=== PATIENT | female | born 1995 | race Hispanic/Latino ===

== ENCOUNTER 2024-11-21 18:37 | Emergency (ER) | payer SELFPAY ==
[~2024-11-21] VITALS: Ht 170.2 cm; Wt 95.3 kg
[2024-11-21 19:02] LABS: APPEARANCE,URINE CLEAR (CLEAR); BILIRUBIN,URINE NEGATIVE (NEGATIVE); COLOR,URINE LIGHT-YELLOW (YELLOW); GLUCOSE, URINE (UA) NEGATIVE (NEGATIVE); KETONES,URINE NEGATIVE (NEGATIVE); LEUKOCYTE ESTERASE ,URINE NEGATIVE Leu/uL (NEGATIVE); NITRATE,URINE NEGATIVE (NEGATIVE); PH,URINE 5.5 (5.0-8.0); PROTEIN,URINE NEGATIVE (NEGATIVE); UROBILINOGEN,URINE 0.2 mg/dL (0.2-1.0)
[2024-11-21 19:03] LABS: ADD UA MICROSCOPIC YES
[2024-11-21 19:05] LABS: BACTERIA,URINE RARE /HPF (None Seen); MUCUS,URINE RARE LPF (None Seen); SQUAMOUS EPITHELIAL CELL,UR RARE /HPF (0-2)
[2024-11-21 19:06] LABS: HCG,QUALITATIVE URINE NEGATIVE (NEGATIVE)
[2024-11-21] MEDS: cefTRIAXone 1G VIAL IM ONE (19:11)
[2024-11-21] MEDS ORDERED: DOXY100T2 PO (19:29)
--- NOTE | 2024-11-21 19:29 | ERN ---
ED Note History of Present Illness Stated Complaint: PAIN WITH URINATION Chief Complaint: Painful Urination Time Seen by MD: 18:41 Time Seen by Midlevel: 18:41 Dictation: The patient is a 29-year-old female with a history of who presents to the emergency department with complaints of burning urination for three days after she had an unproductive sex. Patient denies any vaginal bleeding or discharge, denies any fevers, denies any nausea vomiting or diarrhea. No other symptoms reported. Allergies: Coded Allergies: Penicillins (Unverified Allergy, Unknown, 11/21/24) amoxicillin (Unverified Allergy, Unknown, 11/21/24) Home Meds Active Scripts Doxycycline Hyclate (Doxycycline Hyclate) 100 Mg Tablet, 1 TAB PO BID for 7 Days, #14 TAB 0 Refills Prov:JAMES BAILEY TRAIN [employer]NER 11/21/24 Past Medical History Past Medical History: No Pertinent History Surgical History: BTL, LMP: November 07, 2024 RN Note Reviewed/Agreed w/PFSH: Yes Review of System Dictation Constitutional: Negative for fever,chills, and weight loss Eyes: Negative for injury, pain,redness, and discharge ENT: Negative for injury,pain or swelling Cardiovascular: Negative for chest pain, palpitations, and edema Respiratory: Negative for shortness of breath, cough, and wheezing, Abdomen/GI: Negative for abdominal pain, nausea, vomiting, diarrhea, and constipation Back: Negative for injury and pain : Positive for dysuria MS/Extremity: Negative for injury and deformity Skin: Negative for rash, and discoloration Neuro: Negative for headache, weakness, numbness, tingling, and seizure Psych: Negative for suicide ideation, homicidal ideation, and hallucinations Initial Vital Sign VS Vital Signs Date Time Temp Pulse Resp B/P (MAP) Pulse Ox O2 Delivery O2 Flow Rate FiO2 11/21/24 18:41 98.2 77 18 128/75 97 Room Air 11/21/24 18:47 0 21 Physical Exam Dictation Vital Signs reviewed General Appearance: Alert, oriented x 3, no acute distress, well developed, nourished. Head and Face: non-traumatic. Eyes: PERRL, pink conjunctivas, eyelid no trauma, anterior chamber with arcus senilis. Ears: Pinnas intact and no signs of trauma or erythema ear canals clear and no d ischarge TM no erythema Nose: No discharge, no bleeding. Oropharynx: Mouth normal, tongue pink. pharynx clear,no erythema, tonsils no exudates, no abscesses noted, mucous membrane moist Neck: Supple, non-tender, no thyromegaly, no masses, no JVD, no bruits Breast:Deferred Chest:No tenderness, no crepitus, no paradoxical movement, no retractions Lungs:Clear, well-ventilated, symmetric, no rales, no wheezing, no rhonchi, no stridor, good breath sounds bilaterally Heart: Regular rate, regular rhythm, no murmur, no gallops Vascular: no peripheral edema, Abdomen: Soft, positive bowel sounds, nondistended, no guarding, nontender, no rebound, no masses no hepatomegaly, no splenomegaly, no Leon's sign, no hernias. Rectal: Deferred Genital: Deferred Neurological: Normal speech, motor function intact, sensory function intact Musculoskeletal: Neck nontender, full range of motion, back nontender, full range of motion, Extremities: nontender, full range of motion Skin: Color pink, dry, no turgor, no rash, no lacerations, no abrasions, no contusions. Lymphatic: Deferred Results (Laboratory/Radiology) Laboratory/Radiology Laboratory Tests Test 11/21/24 18:50 Urine Color LIGHT-YELLOW (YELLOW) Urine Appearance CLEAR (CLEAR) Urine pH 5.5 (5.0-8.0) Urine Specific [place] 1.024 (1.001-1.031) Urine Protein NEGATIVE mg/dL (NEGATIVE) Urine Glucose (UA) NEGATIVE mg/dL (NEGATIVE) Urine Ketones NEGATIVE mg/dL (NEGATIVE) Urine Occult Blood +- (TRACE) (NEGATIVE) H Urine Nitrate NEGATIVE (NEGATIVE) Urine Bilirubin NEGATIVE mg/dL (NEGATIVE) Urine Urobilinogen 0.2 mg/dL (0.2-1.0) Urine Leukocyte Esterase NEGATIVE Peter/uL Urine RBC 2-5 /HPF (0-1) H Urine WBC 2-5 /HPF (0-1) H Urine Squamous Epithelial Cells RARE /HPF (0-2) Urine Bacteria RARE /HPF (None Seen) Urine HCG, Qualitative NEGATIVE (NEGATIVE) Labs Reviewed?: Yes ED Course ED Course Orders Procedure Category Date Status Time Urinalysis Profile LAB 11/21/24 Complete 18:48 ,Urine Test LAB 11/21/24 Complete 18:48 Chlamydia & Gc Pcr LUIS 11/21/24 In Process 18:48 Ceftriaxone 1g Vial PHA 11/21/24 Complete (Rocephine 1g Inj) 19:00 Current Medications Medications (Trade) Dose Ordered Sig/Héctor Route PRN Reason Start Time Stop Time Status Last Admin Dose Admin Ceftriaxone Sodium (ROCEphine 1G INJ) 1 gm ONCE ONCE IM 11/21/24 19:00 11/21/24 19:04 DC 11/21/24 19:11 Vital Signs Date Time Temp Pulse Resp B/P (MAP) Pulse Ox O2 Delivery O2 Flow Rate FiO2 11/21/24 20:27 98.2 72 18 124/72 97 Room Air* 0 21 11/21/24 18:47 98.2 77 18 128/75 97 Room Air* 0 21 11/21/24 18:41 98.2 77 18 128/75 97 Room Air Medical Decision Making MDM The patient is a 29-year-old female with a history of who presents to the emergency department with complaints of burning urination for three days after she had an unproductive sex. Patient denies any vaginal bleeding or discharge, denies any fevers, denies any nausea vomiting or diarrhea. No other symptoms reported. Urinalysis negative for leukocyte esterase and nitrites. Pending gonorrhea and chlamydia cultures. Patient will be treated prophylactic. Patient with a nontender abdomen, in no acute distress, nontoxic appearance. Patient instructed to follow up with cultures and to follow up with PCP for full STD panel. Differential diagnosis: UTI, STD, dysuria Need for hospitalization: Patient does not meet criteria for hospitalization. There are no social concerns with this patient. DX & DISP Disposition: Discharge Departure Impression: Primary Impression: Dysuria Additional Impression: Possible exposure to STD Condition: Stable Scripts Doxycycline Hyclate (Doxycycline Hyclate) 100 Mg Tablet 1 TAB PO BID for 7 Days, #14 TAB 0 Refills Prov: JAMES BAILEY TRAIN PL[employer]NER 11/21/24 Additional Instructions: Please follow up with your primary doctor in 1-2 days. Follow up with urine culture. Follow up with your doctor for full STD panel. If symptoms worsen please return to ER. FOLLOW-UP WITH PRIMARY CARE PROVIDER IN 1 TO 2 DAYS. TAKE MEDICATIONS DIRECTED HERE IN THE EMERGENCY ROOM. OKAY TO CONTINUE HOME MEDICATIONS UNLESS OTHERWISE DISCUSSED DURING YOUR VISIT IN THE EMERGENCY ROOM TODAY. RETURN TO YOUR NEAREST EMERGENCY ROOM IF SYMPTOMS WORSEN OR IF THERE IS NO IMPROVEMENT. CALL 911 IF YOU NEED IMMEDIATE ASSISTANCE. TAKE TYLENOL OR MOTRIN [id number] NEEDED AND IF NO CONTRAINDICATIONS ARE PRESENT. INCREASE ORAL HYDRATION. A WOUND CULTURE OR URINE CULTURE WAS ORDERED HERE IN THE E MERGENCY ROOM DEPARTMENT PLEASE FOLLOW-UP WITH PRIMARY CARE PROVIDER AND ADVISE THEM TO GET REPEAT PORTS FROM OUR FACILITY. IF YOU HAD ANY [place]AN WRAP/SPLINTS THAT WERE APPLIED HERE, PLEASE DO NOT REMOVE THEM UNTIL YOU SEE YOUR PRIMARY CARE OR SPECIALTY. Referrals: SELF,REFERRAL (PCP) Time of Disposition: 19:27 I have reviewed the case, and I agree with, Diagnosis and Plan JAMES BAILEY November 21, 2024 19:29 JERI GONZALEZ DO November 22, 2024 04:41
[2024-11-21 20:27] VITALS: BP 124/72; PULSE 72; RESP 18; TEMP 98.2; O2SAT 97
== END 2024-11-21 20:28 | disposition home or self-care (01) ==
LOC: EDH 18:37
DX: R30.0 Dysuria (principal); Z88.0 Allergy status to penicillin; Z98.51 Tubal ligation status
CPT/HCPCS: 99283; 87491; 87591; 81001; 81025; 96372; J0696